=== PATIENT | male | born 1985 | race Caucasian/White ===

== ENCOUNTER 2024-03-21 08:55 | Emergency (ER) | payer OTHER, SELFPAY ==
[2024-03-21 09:00] VITALS: BP 135/93
[2024-03-21 09:05] VITALS: BMI 29.6
--- NOTE | 2024-03-21 09:52 | ED.GENMED ---
History of Present Illness
General
Chief Complaint: Rabies
Source: patient
Exam Limitations: none
Time Seen by Provider: 03/21/24 09:48
Nursing documentation reviewed up to this point in time: agreed with
Travel History
Have you had any contact with someone who has COVID-19?: No
Do you have any symptoms of coronavirus? Fever > 100 degrees, chills, cough, shortness of breath, sore throat, loss of taste or smell, muscle aches, or headache?: No
History of Present Illness
History of Present Illness:
39-year-old male presenting to the emergency department seeking a rabies vaccine he is from [place] and was bit by dog 7 days ago had his first 2 doses no complications otherwise feels well but seeking a rabies vaccine today.
Past History
Past History
ED Past Medical History: None
Social History
Tobacco: Non-smoker
Personal:
Living: with family
Employment: Employed
Review of Systems
Review of Systems
Allergies reviewed?: Yes
All Other Systems: ROS reviewed and negative except as documented in HPI and ROS
Phy Exam
Physical Exam
Physical Exam:
GENERAL: Alert , in no apparent distress
EYE: pupils equal and reactive
NECK: Supple, no significant adenopathy.
ENT: o/p clr, mmm.
NEUROLOGICAL: Alert and oriented, no focal neuro deficits
SKIN: Warm and dry, skin intact.
MUSCULOSKELETAL: No edema, well perfused.
PSYCH: Normal and appropriate interaction.
Course
Orders/Labs/Results
Orders:
Orders
03/21/24 10:00
Rabies Vaccine ([facility])/Pf [Rabavert Rabies Vacc W-Diluent] 2.5 unit IM .ONCE ONE
Vital Signs
Initial and Last Documented VS:
Initial Vital Signs
Temp Pulse Resp BP Pulse Ox
98.3 F 72 20 135/93 98
03/21/24 09:00 03/21/24 09:00 03/21/24 09:00 03/21/24 09:00 03/21/24 09:00
Last Documented Vital Signs
Temp Pulse Resp BP Pulse Ox
98.3 F 72 20 135/93 98
03/21/24 09:00 03/21/24 09:00 03/21/24 09:00 03/21/24 09:00 03/21/24 09:00
MDM/Problems Addressed
MDM/Problems Addressed:
39-year-old male presenting for third rabies shot no additional concerns. Given vaccine stable for discharge
*Critical Care Note
Total Time (30-74mins, 75-104mins- exclusive of procedures): Not Applicable
ED Attending Note
-
Portions of this chart may have been created with voice recognition software.� Occasional wrong word or��sound alike� substitutions may have occurred due to the inherent limitations of voice recognition software.
Discharge Plan
Departure
Patient Disposition: Home (Routine Discharge)
Date of Disposition: 03/21/24
Time of Disposition: 09:57
Patient with high blood pressure during this ER visit?: No
Condition: Good
Covid-19: Not Applicable
Discharge Problem:
Animal bite
Instructions: Rabies
Prescriptions:
No Action
ondansetron 4 MG tablet,disintegrating
4 mg PO TIDPRN PRN (Reason: nausea/vomiting) Qty: 6 0RF
Stand Alone Forms: Rabies Vaccine Post Exp Dosing
Activity Restrictions/Additional Instructions:
You came to the emergency department today with for your rabies vaccine. Please follow-up in 1 week for your final vaccine.
Discharge Date and Time
Print Language: [id number]
[2024-03-21] MEDS: RABAVERT RABIES VACC W-DILUENT 2.5 UNIT IM (10:17)
== END 2024-03-21 10:52 | disposition home or self-care (01) ==
LOC: EMR 08:55
PROVIDERS: EMERGENCY PHYSICIAN Emergency Medicine
DX: Z23 Encounter for immunization (principal); Z20.3 Contact with and (suspected) exposure to rabies; Z87.891 Personal history of nicotine dependence
CPT/HCPCS: 90471; 90675; 99282

== ENCOUNTER 2024-03-28 14:52 | Outpatient (RCR) | payer OTHER, SELFPAY ==
[2024-03-28] MEDS: RABAVERT RABIES VACC W-DILUENT 2.5 UNIT IM (15:05)
[2024-03-28 15:07] VITALS: BP 124/73
== END 2024-03-29 08:51 | disposition home or self-care (01) ==
LOC: OID 14:52
PROVIDERS: ATTENDING PHYSICIAN Physician Assistant
DX: Z20.3 Contact with and (suspected) exposure to rabies (principal); Z23 Encounter for immunization
CPT/HCPCS: 90471; 90675